=== PATIENT | male | born 1955 | race Caucasian/White ===

== ENCOUNTER 2018-02-16 20:07 | Emergency (ER) | payer MEDICAID ==
[~2018-02-16] VITALS: Ht 175.3 cm; Wt 81.2 kg
[2018-02-16 20:14] VITALS: BP 135/70
== END 2018-02-16 20:45 | disposition home or self-care (01) ==
LOC: ER 20:09
DX: R60.0 Localized edema (principal); F17.200 Nicotine dependence, unspecified, uncomplicated; I10 Essential (primary) hypertension
CPT/HCPCS: 99283; A4606; Z7610

== ENCOUNTER 2018-02-17 13:22 | Emergency (ER) | payer MEDICAID ==
[~2018-02-17] VITALS: Ht 175.3 cm; Wt 79.8 kg
--- NOTE | 2018-02-17 13:50 | NUR ---
PT CAME IN WITH C/O "TOTAL EXHAUSTION" SINCE TODAY. SEEN BY PA FOR EVAL. VSS. SAFETY AND COMFORT MEASURES PROVIDED. WILL MONITOR.
[2018-02-17] MEDS ORDERED: IV NS 0.9% 1,000 ML BAG IV ONE (14:00)
[2018-02-17 14:32] LABS: BASOPHILS % (AUTO) 0.3 % (0.0-2.0); EOSINOPHILS % (AUTO) 0.6 % (0.0-6.0); HEMATOCRIT 36 % (39-51); LYMPHOCYTES # (AUTO) 1.7 /CMM (0.8-4.8); LYMPHOCYTES % (AUTO) 14.1 % (20.0-44.0); MEAN CORPUSCULAR HEMOGLOBIN 27 PG (26.0-33.0); MEAN CORPUSCULAR HGB CONC 34 g/dl (31.0-36.0); MEAN CORPUSCULAR VOLUME 80 fL (80-96); MONOCYTES # (AUTO) 1.7 /CMM (0.1-1.30); MONOCYTES % (AUTO) 14.2 % (2.0-12.0); NEUTROPHILS # (AUTO) 8.2 /CMM (1.8-8.9); NEUTROPHILS % (AUTO) 70.8 % (43.0-81.0); PLATELET COUNT (AUTO) 202 /CMM (150-450); RDW COEFFICIENT OF VARIATION 15.7 (11.5-15.0); RED BLOOD CELL COUNT(AUTO) 4.44 MIL/uL (4.5-6.0); WHITE BLOOD COUNT (AUTO) 11.7 K/uL (4.3-11.0)
[2018-02-17 14:37] LABS: CALCIUM, SERUM 8.6 mg/dL (8.5-10.1); CREATININE 1.2 mg/dL (0.6-1.3)
[2018-02-17 14:43] LABS: ALBUMIN 3.2 g/dL (3.4-5.0); BILIRUBIN,DIRECT 0.1 mg/dL (0.0-0.2); BILIRUBIN,TOTAL 0.5 mg/dL (0.2-1.0); TOTAL PROTEIN, SERUM 6.9 g/dL (6.4-8.2)
--- NOTE | 2018-02-17 15:20 | NUR ---
IV removed. Catheter intact and site benign. Pressure and 4x4 applied to site. No bleeding noted.
--- NOTE | 2018-02-17 15:49 | NUR ---
Patient discharged to home in stable condition. Written and verbal after care instructions given. Patient verbalizes understanding of instruction.
[2018-02-17 15:51] VITALS: BP 145/81
== END 2018-02-17 15:52 | disposition home or self-care (01) ==
LOC: ER 13:24
DX: T67.5XXA Heat exhaustion, unspecified, initial encounter (principal); R79.89 Other specified abnormal findings of blood chemistry; I10 Essential (primary) hypertension; F17.200 Nicotine dependence, unspecified, uncomplicated; X08.8XXA Exposure to other specified smoke, fire and flames, initial encounter; Y93.01 Activity, walking, marching and hiking; Y92.89 Other specified places as the place of occurrence of the external cause; Y99.8 Other external cause status
CPT/HCPCS: 36415; 80048; 80076; 85025; 99284; A4606; J7030; Z7610

== ENCOUNTER 2018-02-18 03:30 | Emergency (ER) | payer SELFPAY ==
[~2018-02-18] VITALS: Ht 170.2 cm; Wt 78.0 kg
--- NOTE | 2018-02-18 03:40 | NUR ---
PT BIB [facility] WITH A C/O ABD PAIN. PT DENIES ABD PAIN TO ER MD. PT DENIES HAVING ANY MEDICAL ISSUE TO BE TREATED IN THE ER AT THIS TIME.
--- NOTE | 2018-02-18 03:47 | NUR ---
Patient discharged to home in stable condition. Written and verbal after care instructions given. Patient verbalizes understanding of instruction. PT AMBULATED OUT WITH A STEADY GAIT. NAD NOTED. VSS.
[2018-02-18 04:00] VITALS: BP 148/89
== END 2018-02-18 04:02 | disposition home or self-care (01) ==
LOC: ER 03:31
DX: L59.9 Disorder of the skin and subcutaneous tissue related to radiation, unspecified (principal); I10 Essential (primary) hypertension; K46.9 Unspecified abdominal hernia without obstruction or gangrene; F17.200 Nicotine dependence, unspecified, uncomplicated; Z59.0 Homelessness
CPT/HCPCS: 99283; A4606; Z7610

== ENCOUNTER 2018-02-18 08:27 | Emergency (ER) | payer MEDICAID ==
[~2018-02-18] VITALS: Ht 167.6 cm; Wt 77.1 kg
--- NOTE | 2018-02-18 08:27 | NUR ---
"I'VE BEEN VERY EXHAUSTED FOR THE LAST 3 YEARS BECAUSE OF MY HERNIA". NAD NOTED. PT AAO X4, AMB WITH STEADY GAIT. RR EVEN AND UNLABORED. PENDING MD PADILLA.
--- NOTE | 2018-02-18 09:47 | NUR ---
WILVER CALLED AND SPOKE WITH HARPREET SAGE.
--- NOTE | 2018-02-18 10:15 | NUR ---
HARPREET CUADRA AT BEDSIDE SPEAKING TO PATIENT
--- NOTE | 2018-02-18 11:54 | NUR ---
Patient discharged to home in stable condition. Written and verbal after care instructions given. Patient verbalizes understanding of instruction. AAOX3, ambulates out of ER with stable gait.
[2018-02-18 11:57] VITALS: BP 124/82
== END 2018-02-18 11:58 | disposition home or self-care (01) ==
LOC: ER 08:32
DX: R60.0 Localized edema (principal); I10 Essential (primary) hypertension; K46.9 Unspecified abdominal hernia without obstruction or gangrene; F17.200 Nicotine dependence, unspecified, uncomplicated
CPT/HCPCS: 99281; A4606; Z7610; Z7502

== ENCOUNTER 2018-02-19 02:58 | Emergency (ER) | payer MEDICAID ==
[~2018-02-19] VITALS: Ht 167.6 cm; Wt 77.1 kg
[2018-02-19 03:03] VITALS: BP 136/84
--- NOTE | 2018-02-19 04:34 | NUR ---
[place] [facility] in [facility] - 02/19/18 at 0435 by HU CALLED [facility], SPOKE TO , MESHA'S TO BE READ NEXT.
--- NOTE | 2018-02-19 04:35 | NUR ---
CALLED [facility], SPOKE TO SAMUEL FOR PENDING XR, XRAY'S TO BE READ NEXT.
--- NOTE | 2018-02-19 04:52 | NUR ---
PT LEFT WITHOUT D/C PAPERS. DR. BRYAN MADE AWARE.
== END 2018-02-19 04:53 | disposition home or self-care (01) ==
LOC: ER 03:02
DX: M25.572 Pain in left ankle and joints of left foot (principal); M25.571 Pain in right ankle and joints of right foot; G89.29 Other chronic pain; I10 Essential (primary) hypertension; F17.200 Nicotine dependence, unspecified, uncomplicated; Z59.0 Homelessness
CPT/HCPCS: 73610 ×2; 99284; A4606; Z7610